=== PATIENT | male | born 1955 | race Caucasian/White ===

== ENCOUNTER 2017-07-15 08:57 | Emergency (ER) | payer OTHER ==
[~2017-07-15] VITALS: Ht 175.3 cm; Wt 87.2 kg
[~2017-07-15 08:57] MED LIST: CLARITIN,ALAVAR10 MG PO; COQ-10100 MG PO; DAILY VITAMIN1 EAC8 PO; DHEA50 M1 PO; MULTIPLE VITAM1 EACH PO; ZESTRIL10 MG PO
[2017-07-15 10:06] LABS: CHLORIDE 108 mEq/L (99-109); MAGNESIUM 2.2 mg/dL (1.3-2.7); POTASSIUM 4.6 mEq/L (3.7-5.4); SODIUM 139 mEq/L (136-147)
[2017-07-15 10:08] LABS: GLUCOSE 118 mg/dL (70-99)
[2017-07-15 10:11] LABS: CREATININE 0.8 mg/dL (0.6-1.3); GFR ESTIMATE (CALCULATED) > 59 mL/min/ (58.99-99999)
[2017-07-15 10:12] LABS: UREA NITROGEN (BUN) 34 mg/dL (9-23)
[2017-07-15 10:14] LABS: HEMATOCRIT 38.4 % (38.0-50.0); HEMOGLOBIN 13.8 G/DL (12.5-16.6); MCH 30.9 PG (29.0-34.0); MCHC 35.9 G/DL (30.0-36.0); MCV 86.1 FL (86-99); PLATELET COUNT 202 K/uL (156-360); RBC DIS.WIDTH-CV 11.7 % (11.8-14.6); RBC DIS.WIDTH-SD 37.4 % (39-53); RED BLOOD COUNT 4.46 M/uL (4.00-5.50); WHITE BLOOD COUNT 4.3 K/uL (4.1-10.2)
[2017-07-15 10:16] LABS: TROP-I INTERPRETATION NEGATIVE; TROPONIN-I 0.04 ng/mL (0.0-0.30)
[2017-07-15 11:30] VITALS: BP 144/62
== END 2017-07-15 11:33 | disposition home or self-care (01) ==
LOC: EME 08:57
PROVIDERS: Emergency Medicine
DX: R00.2 Palpitations (principal); I34.1 Nonrheumatic mitral (valve) prolapse
CPT/HCPCS: 80048; 83735; 84484; 85027; 93005; 99281; 99285; J7030

== ENCOUNTER → 2017-10-28 | Outpatient (CLI) | payer OTHER | END | disposition home or self-care (01) | LOC: NUC 07:00 | DX: E05.00 Thyrotoxicosis with diffuse goiter without thyrotoxic crisis or storm (principal) | CPT/HCPCS: 78014; 78999; A9516 ==